=== PATIENT | female | born 1975 | race Caucasian/White ===

== ENCOUNTER 2018-06-24 22:57 | Emergency (ER) | payer BC, OTHER ==
[2018-06-24 23:01] VITALS: BP 117/84; PULSE 65; TEMP 98.2; BMI 34.4
--- NOTE | 2018-06-25 00:33 | PDOC ---
History of Present Illness - General Chief Complaint: Injury Stated Complaint: FINGER LACERATION History Source: Patient Exam Limitations: No Limitations - History of Present Illness Initial Comments: 06/25/18 00:29 42 yo F no pmhx here with laceration to left hand. was holding peice of glass slipped and sustained laceration to 3 fingers, ring, middle and index finger. bleedign controlled with pressure. tetanus up to date. no new numbness or tingling. from. happened at 10 pm tonight. Past History - Past Medical History Allergies/Adverse Reactions: Allergies Allergy/AdvReac Type Severity Reaction Status Date / Time naproxen Allergy Verified 06/24/18 23:02 COPD: No - Suicide/Smoking/Psychosocial Hx Smoking History: Never smoked Review of Systems - Review of Systems Constitutional: No: Chills, Diaphoresis HEENTM: No: Eye Pain Respiratory: No: Cough, Orthopnea Cardiac (ROS): No: Chest Pain Integumentary: Yes: Other (laceration) Neurological: No: Headache All Other Systems: Reviewed and Negative *Physical Exam - Vital Signs Last Vital Signs Temp Pulse Resp BP Pulse Ox 98.2 F 65 18 117/84 99 06/24/18 23:00 06/24/18 23:00 06/24/18 23:00 06/24/18 23:00 06/24/18 23:00 - Physical Exam Comments: 06/25/18 00:30 awake alert lungs clear bilaterally heart rrr no mrg left hand small 0.5 cm laceration left ring finger. dorsal aspect over pip crease, other laceration superifical no active bleedign. Procedures - Laceration/Wound Repair Left Proximal Dorsal Hand 4th digit Wound Explored: clean Wound's Depth, Shape: superficial Anesthesia: 1% Lidocaine Wound Repaired With: Sutures Suture Size/Type: 5:0, nylon Number of Sutures: 2 Medical Decision Making - Medical Decision Making 06/25/18 00:31 pt with small laceration . sutures placed x 2. tolerated well. lidocaine. local and bacitracin sterile dressing. *DC/Admit/Observation/Transfer Diagnosis at time of Disposition: Laceration - Discharge Dispostion Disposition: HOME Condition at time of disposition: Improved Decision to Admit order: No - Referrals Referrals: Mónica Carranza MD [Primary Care Provider] - - Patient Instructions Printed Discharge Instructions: DI for Suture Removal Additional Instructions: keep clean and dry for one day. then wash daily with mild soap and water. apply bacitracin twice daily. return for redness swelling or any signs of infection. you should return for suture removal in 7 - 10 days. - Post Discharge Activity
== END 2018-06-25 00:41 | disposition home or self-care (01) ==
LOC: JER 22:57
PROC: 0HQGXZZ Repair Left Hand Skin, External Approach (ICD-10-PCS; principal; 2018-06-24)
DX: S61.215A Laceration without foreign body of left ring finger without damage to nail, initial encounter (principal); W25.XXXA Contact with sharp glass, initial encounter; Y93.G1 Activity, food preparation and clean up; Y92.9 Unspecified place or not applicable
CPT/HCPCS: 99281-25

== ENCOUNTER 2018-07-06 09:40 | Emergency (ER) | payer BC, OTHER ==
[2018-07-06 10:01] VITALS: BP 110/60; PULSE 51; TEMP 97.5; BMI 34.4
--- NOTE | 2018-07-06 10:27 | PDOC ---
Suture Removal/Wound Check HPI - History of Present Illness Chief Complaint: Suture/Staple Removal(Here) Stated Complaint: STITCHES REMOVAL Time Seen by Provider: 07/06/18 10:20 History Source: Yes: Patient Exam Limitations: Yes: No Limitations Treated at: [facility] ED - Previous ED Treatment Type of procedure performed on last visit: Yes: Laceration Repair Past History - Travel Traveled outside of the country in the last 30 days: No Close contact w/someone who was outside of country & ill: No - Past Medical History Allergies/Adverse Reactions: Allergies Allergy/AdvReac Type Severity Reaction Status Date / Time naproxen Allergy Verified 07/06/18 09:58 Home Medications: Ambulatory Orders NK [No Known Home Medication] 07/06/18 COPD: No - Suicide/Smoking/Psychosocial Hx Smoking History: Never smoked Hx Alcohol Use: No Drug/Substance Use Hx: No Suture Removal/Wound Check PE - Physical Exam Laceration/Wound Check Symptoms: reports: None, Improved, Other Comment ( minimal swelling over the L 4th PIP. Full ROM. No pain with flexion or extention over the joint). denies: Chills, Redness Current Severity Level: None Maximum Severity Level: None Pain Localization: None Location of Laceration/Wound: left: Finger (L 4th finger with 2 simple interrupted sutures) *Review of Systems - Review of Systems Able to Perform ROS?: Yes Constitutional: No: Chills, Fever, Weakness Integumentary: Yes: Other (mild swelling over the 4th L finger). No: Erythema, Pruritus, Rash *Physical Exam - Vital Signs Last Vital Signs Temp Pulse Resp BP Pulse Ox 97.5 F L 51 L 16 110/60 100 07/06/18 09:58 07/06/18 09:58 07/06/18 09:58 07/06/18 09:58 07/06/18 09:58 Medical Decision Making - Medical Decision Making 07/06/18 10:37 The patient is a 42-year-old female no past medical history presents for evaluation of her sutures to her left fourth finger. There were placed approximately 10 days ago in our ER. She states that the wound has healed well and she has no complaints. Denies purulent drainage, numbness and tingling and weakness to the site. A/P: Visit for suture removal On exam the wound is well-healed and well approximated minimal swelling over the PIP of the left fourth finger. Patient with full range of motion in the finger without pain. Sutures removed, dressing applied Discharge home with PCP follow-up. I discussed the physical exam findings, ancillary test results and final diagnoses with the patient. I answered all of the patient's questions. The patient was satisfied with the care received and felt comfortable with the discharge plan and treatment plan. The Patient agrees to follow up with the primary care physician/specialist within 24-72 hours. Return precautions were given. *DC/Admit/Observation/Transfer Diagnosis at time of Disposition: Visit for suture removal - Discharge Dispostion Disposition: HOME Condition at time of disposition: Stable Decision to Admit order: No - Referrals Referrals: Mónica Carranza MD [Primary Care Provider] - - Patient Instructions Printed Discharge Instructions: DI for Suture Removal Additional Instructions: You had your sutures/ken removed today. Please use bacitracin on the site for the next week. Avoid soaking the area with water for 1 more week as to what the wound fully heal. Follow-up with her primary care doctor as needed Return to the emergency department if you develop fevers, drainage from the site , increased pain, or have any changes in your symptoms. - Post Discharge Activity Forms/Work/School Notes: Back to Work
== END 2018-07-06 10:43 | disposition home or self-care (01) ==
LOC: JERFT 09:40
DX: Z48.817 Encounter for surgical aftercare following surgery on the skin and subcutaneous tissue (principal); Z48.02 Encounter for removal of sutures
CPT/HCPCS: 99281-25